=== PATIENT | female | born 1940 ===

== ENCOUNTER 2023-05-10 04:10 | Day surgery (SDC) | payer OTHER ==
[2023-05-05 11:30] VITALS: BMI 33.5
[2023-05-10] MEDS: LIDOCAINE HCL 2% JELLY 10 ML CARTRIDGE TP ONE
[2023-05-10] MEDS ORDERED: GLYCOPYRROLATE 0.2 MG/1 ML VIAL ONE (09:07)
[2023-05-10] MEDS ORDERED: LIDOCAINE HCL/PF 2% SDV 5ML VIAL ONE (09:07)
[2023-05-10] MEDS ORDERED: CLINDAMYCIN PHOSPHATE 600 MG/4 ML VIAL ONE ×2 (09:08→09:20)
[2023-05-10] MEDS ORDERED: ONDANSETRON 4 MG/2 ML VIAL ONE (09:20)
[2023-05-10] MEDS: CLINDAMYCIN PHOSPHATE 900 MG/6 ML VIAL IVPB ONE (09:20)
[2023-05-10] MEDS: ceFAZolin SODIUM 1 GM VIAL IVPB ONE ×2 (09:20)
[2023-05-10] MEDS ORDERED: METHYLENE BLUE 50 MG/10 ML AMPUL ONE (09:27)
[2023-05-10] MEDS ORDERED: ISOSULFAN BLUE 50 MG/5 ML VIAL SQ ONE (09:27)
[2023-05-10] MEDS ORDERED: oxyCODONE HCL 5 MG TABLET PO PRN (10:28)
[2023-05-10] MEDS ORDERED: ONDANSETRON 4 MG/2 ML VIAL IVPUSH PRN (10:28)
[2023-05-10] MEDS ORDERED: PROMETHAZINE HCL 25 MG/1 ML VIAL IVPB PRN (10:28)
[2023-05-10] MEDS ORDERED: LACTATED RINGERS SOLUTION 1,000 ML IV SCH (10:30)
[2023-05-10] MEDS ORDERED: ACETAMINOPHEN INJECTION 100 ML IVPB ONE (10:39)
[2023-05-10] MEDS: ACETAMINOPHEN 1000 MG/100 ML BAG IVPB ONE (10:40)
[2023-05-10 13:38] VITALS: BP 124/62; PULSE 71; RESP 20; TEMP 97.8
== END 2023-05-10 13:30 | disposition home or self-care (01) ==
LOC: JASU-SURG 04:10
PROVIDERS: ATTEND Urology
PROC: BT1DYZZ Fluoroscopy of Right Kidney, Ureter and Bladder using Other Contrast (ICD-10-PCS; 2023-05-10)
PROC: 0TBB8ZX Excision of Bladder, Via Natural or Artificial Opening Endoscopic, Diagnostic (ICD-10-PCS; principal; 2023-05-10 09:00)
DX: N13.30 Unspecified hydronephrosis (principal); N30.90 Cystitis, unspecified without hematuria
CPT/HCPCS: 76000-TC-FY; 82962; 88305-TC; 88342-TC; 94760; C1769; J0131; Q9968